=== PATIENT | female | born 1930 | race Caucasian/White ===

== ENCOUNTER → 2017-03-23 | Outpatient (CLI) | payer MEDICARE ==
[2016-08-25 10:48] VITALS: BP 153/72
[~2017-03-23] MED LIST: ACET325T9 PO; ASPI81TA44 PO; CLOP75TA57 PO; LATA2.5D3 EACHEYE; LISI10TA2 PO; OSEL30CA PO
--- NOTE | 2017-03-23 17:21 | RAD ---
Carotid ultrasound, 03/23/2017: History: Carotid stenosis Duplex evaluation of the carotid arteries in the neck was performed including grayscale, color-flow and spectral Doppler analysis. There is moderate calcific plaquing at the right carotid bifurcation. There is an associated velocity acceleration in the proximal right internal carotid artery up to 157 cm/s. The end-diastolic velocity at that level is 47 cm/s. The internal carotid artery to common carotid artery ratio is 1.8. These velocity measurements suggest narrowing in the 50-70% diameter range, probably closer the 50% level. There is mild atherosclerotic plaquing at the left carotid bifurcation. The peak systolic velocity in the left internal carotid artery is 88 cm/s with an end-diastolic velocity of 28 cm/s. The internal carotid to common carotid artery ratio is 1.1. These Doppler findings suggest narrowing in the 0-50% diameter range. Antegrade flow is present in both vertebral arteries in the neck. IMPRESSION: 1. Moderate atherosclerotic plaquing at the right carotid bifurcation with underlying luminal narrowing of the proximal internal carotid artery in the 50-70% diameter range. 2. Mild atherosclerotic plaquing at the left carotid bifurcation with underlying luminal narrowing in the 0-50% diameter range. Note: Stenosis calculations for CTA, MRA and conventional angiography are based upon determination of the distal ICA diameter in accordance with the NASCET methodology. Stenosis calculations for Doppler studies are derived from validated velocity criteria which are known to correlate with NASCET methodology of determining stenosis.
== END | disposition home or self-care (01) ==
LOC: US 13:59
PROVIDERS: ATTEND Family Medicine
DX: I63.033 Cerebral infarction due to thrombosis of bilateral carotid arteries (principal)
CPT/HCPCS: 93880

== ENCOUNTER → 2018-08-01 | Outpatient (CLI) | payer MEDICARE ==
[2016-08-25 10:48] VITALS: BP 153/72
[~2018-08-01] MED LIST changes: -ASPI81TA44 PO; +ASPI81TA59 PO
--- NOTE | 2018-08-01 18:25 | RAD ---
EXAM: AP, oblique and lateral views of the left foot DATE: 08/01/2018 2:58 PM INDICATION: left foot pain COMPARISON: No Prior FINDINGS/ IMPRESSION: Decreased bone mineral density. Second-fifth metatarsal neck fractures in mild apex medial angulation. Decreased bone mineral density. Moderate associated soft tissue swelling. Electronically signed by: Gigi Bass MD (08/01/2018 6:21 PM) [id number]
== END | disposition home or self-care (01) ==
LOC: DXRAD 14:45
PROVIDERS: ATTEND Orthopaedic Surgery Sports Medicine
DX: S92.322A Displaced fracture of second metatarsal bone, left foot, initial encounter for closed fracture (principal); S92.332A Displaced fracture of third metatarsal bone, left foot, initial encounter for closed fracture; S92.342A Displaced fracture of fourth metatarsal bone, left foot, initial encounter for closed fracture; S92.352A Displaced fracture of fifth metatarsal bone, left foot, initial encounter for closed fracture; M79.89 Other specified soft tissue disorders; X58.XXXA Exposure to other specified factors, initial encounter; Y93.89 Activity, other specified; Y92.89 Other specified places as the place of occurrence of the external cause; Y99.8 Other external cause status
CPT/HCPCS: 73630

== ENCOUNTER → 2019-07-25 | Outpatient (CLI) | payer MEDICARE ==
[2016-08-25 10:48] VITALS: BP 153/72
[2019-07-25 16:50] LABS: BASO # 0.1 x10^3/uL (0.0-0.2); BASO % 2 % (0-3); EOS # 0.2 x10^3/uL (0.0-0.7); EOS % 2 % (0-3); HEMATOCRIT 29.1 % (36.0-47.0); HEMOGLOBIN 9.1 g/dL (12.0-15.5); LYMPH # 2.3 x10^3/uL (1.0-4.8); LYMPH % 27 % (24-48); MEAN CORPUSCULAR HEMOGLOBIN 27 pg (25-35); MEAN CORPUSCULAR HGB CONC 31 g/dL (31-37); MEAN CORPUSCULAR VOLUME 87 fL (79-100); MONO # 0.6 x10^3/uL (0.0-1.1); MONO % 7 % (0-9); NEUT # 5.4 x10^3uL (1.8-7.7); NEUT % 63 % (31-73); PLATELET COUNT 396 x10^3/uL (140-400); RED BLOOD COUNT 3.35 x10^6/uL (3.50-5.40); RED CELL DISTRIBUTION WIDTH 15.4 % (11.5-14.5); WHITE BLOOD COUNT 8.6 x10^3/uL (4.0-11.0)
[2019-07-25 16:57] LABS: CALCIUM 9.2 mg/dL (8.5-10.1); CREATININE 0.6 mg/dL (0.6-1.0); GFR 94.3; POTASSIUM 3.8 mmol/L (3.5-5.1)
[2019-07-25 17:03] LABS: ALBUMIN 3.3 g/dL (3.4-5.0); ALBUMIN/GLOBULIN RATIO 0.9 (1.0-1.7); TOTAL BILIRUBIN 0.2 mg/dL (0.2-1.0)
[2019-07-26 20:05] LABS: FREE T4 0.97 ng/dL (0.76-1.46); THYROID STIM HORMONE (TSH) 0.984 uIU/mL (0.358-3.740)
== END | disposition home or self-care (01) ==
LOC: LAB 16:05
PROVIDERS: ATTEND Physician Assistant
DX: R00.2 Palpitations (principal)
CPT/HCPCS: 36415; 80053; 84439; 84443; 84484; 85025

== ENCOUNTER → 2019-08-02 | Outpatient (CLI) | payer MEDICARE ==
[2016-08-25 10:48] VITALS: BP 153/72
--- NOTE | 2019-08-02 10:56 | RAD ---
EXAM: Carotid Doppler sonogram. HISTORY: Carotid stenosis. TECHNIQUE: Rascon scale and color Doppler sonographic evaluation of the neck with spectral waveform analysis was performed and static images are submitted for review. FINDINGS: There is moderate to severe atherosclerotic plaque involving the right greater than left internal carotid arteries. The peak systolic velocity within the right common carotid artery is 78 cm/sec. The peak systolic velocity within the right internal carotid artery is 283 cm/sec and the end diastolic velocity within the right internal carotid artery is 84 cm/sec. The right ICA/CCA ratio is 3.7. The peak systolic velocity within the left common carotid artery is 99 cm/sec. The peak systolic velocity within the left internal carotid artery is 151 cm/sec and the end diastolic velocity within the left internal carotid artery is 50 cm/sec. The left ICA/CCA ratio is 2.0. There is normal antegrade flow within both vertebral arteries. IMPRESSION: 1. Elevated peak systolic velocity within the right ICA, suggesting greater than 70% stenosis. This is increased compared to the prior study dated 03/23/2017. 2. Elevated peak systolic velocity within the left ICA, suggesting 50-69% stenosis. This is increased compared to the prior study dated 03/23/2017. 3. Moderate to severe atherosclerotic plaque within the right greater than left internal carotid arteries. PQRS Compliance Statement - Stenosis calculations for CT, MR and conventional angiography are based upon measurement of the distal ICA diameter in accordance with the NASCET methodology. Stenosis calculations for carotid ultrasound studies are derived from validated velocity criteria which are known to correlate with the NASCET methodology. Electronically signed by: Xiomara Lamb MD (08/02/2019 10:53 AM) [place] [id number]
== END | disposition home or self-care (01) ==
LOC: US 09:51
PROVIDERS: ATTEND Family Medicine
DX: I65.23 Occlusion and stenosis of bilateral carotid arteries (principal)
CPT/HCPCS: 93880

== ENCOUNTER 2020-04-02 19:24 | Emergency (ER) | payer MEDICARE ==
[~2020-04-02] VITALS: Ht 160 cm; Wt 35.0 kg
[2020-04-02 19:37] VITALS: BP 138/70
[2020-04-02] MEDS ORDERED: IV NORMAL SALINE 1,000ML 1,000 ML IV ONE (19:45)
[2020-04-02] MEDS ORDERED: ONDANSETRON PF 4 MG/2 ML VIAL. IVP ONE (19:45)
--- NOTE | 2020-04-02 19:51 | PHYS DOC ---
Past History Past Medical History: Anxiety, Arthritis, CVA, Glaucoma, Hypertension, TIA, Other Past Surgical History: Appendectomy, Cholecystectomy, Hysterectomy, Oophorectomy, Tonsillectomy, Other Alcohol Use: None Drug Use: None General Adult EDM: Chief Complaint: HALLUCINATIONS AUDIBLE/VISUAL HPI: HPI: The history was obtained from the patient and daughter. Patient is a 89-year-old female with PMH CVA, hypertension, glaucoma, anxiety who presents with a chief complaint of headache and nausea. Patient states she developed a headache 2 days ago. States it is gradual in onset. She states it involves the front and right part of her head. She states headache is mild in nature. She has not tried any medicine to help with this. She denies any falls or head trauma. Denies any neck pain. Denies fevers. She also notes that she has had some nausea over the past 24 hours without vomiting. She states that she did have abdominal pain associated nausea initially but has no pain currently. Denies urinary symptoms. Does live at [facility]. States she was seen by physician therapy administrative assistant yesterday who evaluated her urine and did not think there is any acute infection. Patient denies any recent changes to her medications. She does note that she seems to be seeing figures in her room that are not actually there. She denies any drug or alcohol use. She denies any chest pain or shortness of breath. Denies any known exposure to coronavirus. She also notes some blurred vision mostly out of her left eye that is new. Denies any spots, flashing lights, floaters. Denies any temporal pain. States she does have some visual disturbance from her history of stroke but denies any extremity weakness. She does ambulate without assistance. No other complaints. Review of Systems: Review of Systems: Constitutional: Denies fever or chills Eyes: Denies change in visual acuity HENT: Denies nasal congestion or sore throat Respiratory: Denies cough or shortness of breath Cardiovascular: Denies chest pain or edema GI: Positive for vomiting : Denies dysuria Musculoskeletal: Denies back pain or joint pain Integument: Denies rash Neurologic: Positive for headache Endocrine: Denies polyuria or polydipsia Lymphatic: Denies swollen glands Psychiatric: Positive for visual hallucinations Heart Score: Risk Factors: Risk Factors: DM, Current or recent (<one month) smoker, HTN, HLP, family history of CAD, obesity. Risk Scores: Score 0 - 3: 2.5% MACE over next 6 weeks - Discharge Home Score 4 - 6: 20.3% MACE over next 6 weeks - Admit for Clinical Observation Score 7 - 10: 72.7% MACE over next 6 weeks - Early Invasive Strategies Current Medications: Current Meds: Current Medications Medications (Trade) Dose Ordered Sig/Shawna Start Time Stop Time Status Last Admin Dose Admin Ondansetron HCl (Zofran) 4 mg 1X ONCE 04/02/20 19:45 04/02/20 19:46 DC Sodium Chloride 1,000 ml @ 1,000 mls/hr 1X ONCE 04/02/20 19:45 04/02/20 20:44 Allergies: Allergies: Allergies Coded Allergies Type Severity Reaction Last Updated Verified Streptomycin Allergy Severe Hives 05/13/14 No morphine Allergy Intermediate Severe headache 05/13/14 No iodine Allergy Unknown 05/13/14 No Physical Exam: PE: Constitutional: Well developed, well nourished, no acute distress, non-toxic ap pearance. [] HENT: Normocephalic, atraumatic, bilateral external ears normal, oropharynx moist, no oral exudates, nose normal. [] Eyes: PERRLA, EOMI, conjunctiva normal, no discharge. [] Neck: Normal range of motion, no tenderness, supple, no stridor. [] Cardiovascular:Heart rate regular rhythm, no murmur [] Lungs & Thorax: Bilateral breath sounds clear to auscultation [] Abdomen: Soft, nontender, nonacute abdomen. No involuntary guarding or rigidity noted. No acute peritonitis. Skin: Warm, dry, no erythema, no rash. [] Back: No tenderness, no CVA tenderness. [] Extremities: No tenderness, no cyanosis, no clubbing, ROM intact, no edema. [] Neurologic: Alert with intact cognitive function. No aphasia, dysarthria, or neglect. GCS 15. Pupils 3 mm briskly reactive b/l. No APD present. Cranial nerv es 2-12 grossly intact; no facial asymmetry present, tongue midline, shoulder shrugging strength intact. Strength 5/5 and symmetric throughout. Light touch sensation intact throughout. Cerebellar testing appropriate without evidence of dysdiadochokinesia. DTR's 2+ in all 4 extremities. Negative pronator drift bilaterally. Gait normal Psychologic: Affect normal, judgement normal, mood normal. [] Current Patient Data: Labs: Laboratory Tests Test 04/02/20 20:00 White Blood Count 7.5 x10^3/uL Red Blood Count 2.31 x10^6/uL Hemoglobin 6.8 g/dL Hematocrit 20.8 % Mean Corpuscular Volume 90 fL Mean Corpuscular Hemoglobin 29 pg Mean Corpuscular Hemoglobin Concent 32 g/dL Red Cell Distribution Width 13.6 % Platelet Count 420 x10^3/uL Neutrophils (%) (Auto) 64 % Lymphocytes (%) (Auto) 23 % Monocytes (%) (Auto) 11 % Eosinophils (%) (Auto) 1 % Basophils (%) (Auto) 1 % Neutrophils # (Auto) 4.8 x10^3uL Lymphocytes # (Auto) 1.7 x10^3/uL Monocytes # (Auto) 0.8 x10^3/uL Eosinophils # (Auto) 0.1 x10^3/uL Basophils # (Auto) 0.1 x10^3/uL Sodium Level 139 mmol/L Potassium Level 2.7 mmol/L Chloride Level 105 mmol/L Carbon Dioxide Level 23 mmol/L Anion Gap 11 Blood Urea Nitrogen 7 mg/dL Creatinine 0.6 mg/dL Estimated GFR (Cockcroft-Gault) 94.3 BUN/Creatinine Ratio 12 Glucose Level 104 mg/dL Lactic Acid Level 0.6 mmol/L Calcium Level 8.6 mg/dL Magnesium Level 1.9 mg/dL Total Bilirubin 0.1 mg/dL Aspartate Amino Transf (AST/SGOT) 13 U/L Alanine Aminotransferase (ALT/SGPT) 14 U/L Alkaline Phosphatase 86 U/L Creatine Kinase 42 U/L Troponin I Quantitative 0.162 ng/mL Total Protein 6.1 g/dL Albumin 2.5 g/dL Albumin/Globulin Ratio 0.7 Salicylates Level 2.8 mg/dL Salicylate Last Dose Date None Salicylate Last Dose Time None Acetaminophen Level 2.8 mcg/mL Acetaminophen Last Dose Date None Acetaminophen Last Dose Time None Current Medications Medications (Trade) Dose Ordered Sig/Shawna Route PRN Reason Start Time Stop Time Status Last Admin Dose Admin Sodium Chloride 1,000 ml @ 1,000 mls/hr 1X ONCE IV 04/02/20 19:45 04/02/20 20:44 DC 04/02/20 21:08 Ondansetron HCl (Zofran) 4 mg 1X ONCE IVP 04/02/20 19:45 04/02/20 19:46 DC Magnesium Sulfate 50 ml @ 25 mls/hr 1X ONCE IV 04/02/20 21:15 04/02/20 23:14 Potassium Chloride 100 ml @ 25 mls/hr Q2H IV 04/02/20 21:15 04/03/20 05:14 EKG: EKG: EKG consistent with normal sinus rhythm. Left axis noted. Intervals normal. ST flattening noted in lead aVF. ST depression noted in lateral precordial leads. Intraocular rate of 98 bpm. Morphology similar to EKG from August 24, 2016. [] Radiology/Procedures: Radiology/Procedures: [address] [address] IMAGING REPORT Signed PATIENT: CRISTIN NEWTON ACCOUNT: [id number] : 1930 LOCATION: ER AGE: 89 SEX: F EXAM STATUS: REG ER ORD. PHYSICIAN: GONZALEZ RYAN DO REASON: abdominal pain diffuse, nausea PROCEDURE: CT ABDOMEN PELVIS WO CONTRAST EXAM: CT ABDOMEN/PELVIS WITHOUT CONTRAST. HISTORY: Abdominal pain, nausea. TECHNIQUE: Computed tomography of the abdomen and pelvis was performed without intravenous contrast. One or more of the following individualized dose reduction techniques were utilized for this examination: 1. Automated exposure control. 2. Adjustment of the mA and/or kV according to patient size. 3. Use of iterative reconstruction technique. COMPARISON: None. FINDINGS: Lung windows through the visualized portions of the bases reveal interstitial opacities and small nodules in both bases measuring up to 6 mm in the right middle lobe. Bone windows reveal no suspicious lesions. There is a moderate inferior endplate compression fracture at L1. There is a mild thoracolumbar dextroscoliosis. There are changes of internal fixation of a chronic right femoral intertrochanteric fracture. A left hip hemiarthroplasty is noted. A benign cyst at the right renal lower pole measures 5.6 x 4.4 cm. There is a small cyst at the left upper pole. The gallbladder is surgically absent. The common duct measures 10 mm. No cause for distal obstruction is seen. The liver, spleen, pancreas, adrenal glands and spleen are unremarkable without contrast. There are no pathologically enlarged lymph nodes. There is an anastomotic suture line along the rectosigmoid junction. There is dense contrast within the colon from a prior procedure. There are no surrounding enlarged lymph nodes. The appendix is not inflamed. There is a focal region of wall thickening along the cecum concerning for a mass. IMPRESSION: 1. A region of wall thickening along the right colon is concerning for adenocarcinoma. Endoscopy is recommended for further evaluation if the diagnosis is not already known. 2. No evidence of metastatic disease by noncontrast CT. Electronically signed by: Clinton Candelario MD (04/02/2020 9:51 PM) [facility] DICTATED AND SIGNED BY: CINDY CANDELARIO MD DATE: 04/02/202150 CC: HELLEN DEAN MD; GONZALEZ RYAN DO ~ [place] [address] IMAGING REPORT Signed PATIENT: CRISTIN NEWTON ACCOUNT: [id number] : 1930 LOCATION: ER AGE: 89 SEX: F EXAM STATUS: REG ER ORD. PHYSICIAN: GONZALEZ RYAN DO REASON: AMS, headache, nausea, weakness PROCEDURE: CHEST AP ONLY EXAM: AP View of the chest DATE: 04/02/2020 7:42 PM INDICATION: Reason: AMS, headache, nausea, weakness / Spl. Instructions: / History: COMPARISON: No Prior FINDINGS: The heart is not enlarged. Mediastinal and hilar contours are normal. Patchy nodular opacity in the suprahilar right upper lung and infrahilar right lower lung. Emphysematous changes are seen. No pleural effusion or pneumothorax. IMPRESSION: 1. Patchy nodular opacities are seen in the right lung. This may represent developing infectious/inflammatory process or underlying lung nodules. Imaging follow-up to resolution is recommended. 2. Background of emphysematous change. Electronically signed by: Gigi Bermeo MD (04/02/2020 9:20 PM) [facility] DI[facility]ATED AND SIGNED BY: GIGI BERMEO MD DATE: 04/02/202119 CC: HELLEN DEAN MD; GONZALEZ RYAN DO ~ [place] [id number] IMAGING REPORT Signed PATIENT: CRISTIN NEWTON ACCOUNT: [id number] : 1930 LOCATION: ER AGE: 89 SEX: F EXAM STATUS: REG ER ORD. PHYSICIAN: GONZALEZ RYAN DO REASON: headahce x 2 days PROCEDURE: CT HEAD WO CONTRAST EXAM: CT Head without IV contrast CLINICAL HISTORY: Headache x 2 days COMPARISON: 08/24/2016 TECHNIQUE: Routine CT of the head without contrast. PQRS compliance statement - One or more of the following individualized dose reduction techniques were utilized for this study: 1. Automated exposure control 2. Adjustment of the mA and/or kV according to patient size 3. Use of iterative reconstruction technique FINDINGS: There is no evidence of hemorrhage, mass or extra-axial fluid collection. Subcortical, periventricular as well as deep white matter hypoattenuation likely changes of chronic small vessel disease. There is no mass effect or shift of the intracranial structures. The ventricles and cerebral sulci are prominent for the patients stated age consistent with generalized cerebral volume loss. The cerebellum and brainstem are unremarkable. The calvarium demonstrates no evidence of fracture or focal lesion. There is normal aeration of the visualized paranasal sinuses and mastoid air cells. The visualized portions of the orbits are normal. IMPRESSION: No evidence for acute intracranial process. White matter changes, likely chronic small vessel disease. There is prominence of the ventricles and sulci bilaterally consistent with generalized atrophy. Electronically signed by: Gigi Bermeo MD (04/02/2020 9:18 PM) [facility] DICTATED AND SIGNED BY: GIGI BERMEO MD DATE: 04/02/202117 CC: HELLEN DEAN MD; GONZALEZ RYAN DO ~ [] Course & Med Decision Making: Course & Med Decision Making Pertinent Labs and Imaging studies reviewed. (See chart for details) [] Patient is a very pleasant 89-year-old female who presents with a chief complaint of generalized weakness. Initial vital signs grossly unremarkable. Physical exam unremarkable as well. No focal neurologic deficits appreciated. CT imaging of the head nonacute. Initial EKG without acute ischemic changes. Compared to previous it is unchanged. Patient does have multiple lab abnormalities. She does have potassium of 2.7. Elevated troponin. Hemoglobin is 6.8. Potassium and magnesium replacement was initiated in the emergency department. She will be given 1 unit packed red blood cells. Although the patient does have an elevated troponin she has no EKG changes and denies any chest pain. I do feel it is most appropriate to defer heparinization given the patient's age and hemoglobin of 6.8 at this time given she is asymptomatic. Patient's chest x-ray did show a nonspecific right-sided abnormality. Patient will be given Rocephin and azithromycin to treat for potential community- acquired pneumonia. COVID swabs were obtained and pending although she denies any respiratory complaints. I did discuss the case with who has agreed to hospitalize the patient at [facility]. He felt the patient would best be cared for at a facility that has more comprehensive cardiology coverage. Overall I agree with this. She has remained hemodynamically stable. She will be transferred to [facility] for hospitalization. Gela Disclaimer: Dragjorge luis Disclaimer: This electronic medical record was generated, in whole or in part, using a voice recognition dictation system. Departure Departure: Impression: Primary Impression: Anemia Qualified Codes: D64.9 - Anemia, unspecified Additional Impressions: Elevated troponin Abnormal chest xray Blurred vision, right eye Abnormal abdominal CT scan Disposition: T-TRM HOSP Condition: STABLE Referrals: HELLEN DEAN MD (PCP) Justification of Admission: Justification of Admission: Justification of Admission Dx: Yes Comments: hypokalemia, elevated troponin, abnormal chest xray, anemia GONZALEZ RYAN DO Apr 02, 2020 19:51
[2020-04-02 20:30] LABS: BASO # 0.1 x10^3/uL (0.0-0.2); BASO % 1 % (0-3); EOS # 0.1 x10^3/uL (0.0-0.7); EOS % 1 % (0-3); HEMATOCRIT 20.8 % (36.0-47.0); LYMPH # 1.7 x10^3/uL (1.0-4.8); LYMPH % 23 % (24-48); MEAN CORPUSCULAR HEMOGLOBIN 29 pg (25-35); MEAN CORPUSCULAR HGB CONC 32 g/dL (31-37); MEAN CORPUSCULAR VOLUME 90 fL (79-100); MONO # 0.8 x10^3/uL (0.0-1.1); MONO % 11 % (0-9); NEUT # 4.8 x10^3uL (1.8-7.7); NEUT % 64 % (31-73); PLATELET COUNT 420 x10^3/uL (140-400); RED BLOOD COUNT 2.31 x10^6/uL (3.50-5.40); RED CELL DISTRIBUTION WIDTH 13.6 % (11.5-14.5); WHITE BLOOD COUNT 7.5 x10^3/uL (4.0-11.0)
[2020-04-02 20:34] LABS: HEMOGLOBIN 6.8 g/dL (12.0-15.5)
[2020-04-02 20:52] LABS: ALBUMIN 2.5 g/dL (3.4-5.0); ALBUMIN/GLOBULIN RATIO 0.7 (1.0-1.7); CALCIUM 8.6 mg/dL (8.5-10.1); CREATININE 0.6 mg/dL (0.6-1.0); GFR 94.3; TOTAL BILIRUBIN 0.1 mg/dL (0.2-1.0); TOTAL PROTEIN 6.1 g/dL (6.4-8.2)
[2020-04-02 21:01] LABS: ACETAMIN 2.8 mcg/mL (10-30); SALIC 2.8 mg/dL (2.8-20.0)
[2020-04-02 21:05] LABS: POTASSIUM 2.7 mmol/L (3.5-5.1)
[2020-04-02] MEDS ORDERED: MAGNESIUM SULFATE 2GM 50 ML IV ONE (21:15)
[2020-04-02] MEDS ORDERED: POTASSIUM CHLORIDE 20MEQ 100 ML IV SCH (21:15)
--- NOTE | 2020-04-02 21:21 | RAD ---
EXAM: CT Head without IV contrast CLINICAL HISTORY: Headache x 2 days COMPARISON: 08/24/2016 TECHNIQUE: Routine CT of the head without contrast. PQRS compliance statement - One or more of the following individualized dose reduction techniques were utilized for this study: 1. Automated exposure control 2. Adjustment of the mA and/or kV according to patient size 3. Use of iterative reconstruction technique FINDINGS: There is no evidence of hemorrhage, mass or extra-axial fluid collection. Subcortical, periventricular as well as deep white matter hypoattenuation likely changes of chronic small vessel disease. There is no mass effect or shift of the intracranial structures. The ventricles and cerebral sulci are prominent for the patients stated age consistent with generalized cerebral volume loss. The cerebellum and brainstem are unremarkable. The calvarium demonstrates no evidence of fracture or focal lesion. There is normal aeration of the visualized paranasal sinuses and mastoid air cells. The visualized portions of the orbits are normal. IMPRESSION: No evidence for acute intracranial process. White matter changes, likely chronic small vessel disease. There is prominence of the ventricles and sulci bilaterally consistent with generalized atrophy. Electronically signed by: Gigi Bass MD (04/02/2020 9:18 PM) [facility]
--- NOTE | 2020-04-02 21:22 | RAD ---
EXAM: AP View of the chest DATE: 04/02/2020 7:42 PM INDICATION: Reason: AMS, headache, nausea, weakness / Spl. Instructions: / History: COMPARISON: No Prior FINDINGS: The heart is not enlarged. Mediastinal and hilar contours are normal. Patchy nodular opacity in the suprahilar right upper lung and infrahilar right lower lung. Emphysematous changes are seen. No pleural effusion or pneumothorax. IMPRESSION: 1. Patchy nodular opacities are seen in the right lung. This may represent developing infectious/inflammatory process or underlying lung nodules. Imaging follow-up to resolution is recommended. 2. Background of emphysematous change. Electronically signed by: Gigi Bass MD (04/02/2020 9:20 PM) [facility]
--- NOTE | 2020-04-02 21:54 | RAD ---
EXAM: CT ABDOMEN/PELVIS WITHOUT CONTRAST. HISTORY: Abdominal pain, nausea. TECHNIQUE: Computed tomography of the abdomen and pelvis was performed without intravenous contrast. One or more of the following individualized dose reduction techniques were utilized for this examination: 1. Automated exposure control. 2. Adjustment of the mA and/or kV according to patient size. 3. Use of iterative reconstruction technique. COMPARISON: None. FINDINGS: Lung windows through the visualized portions of the bases reveal interstitial opacities and small nodules in both bases measuring up to 6 mm in the right middle lobe. Bone windows reveal no suspicious lesions. There is a moderate inferior endplate compression fracture at L1. There is a mild thoracolumbar dextroscoliosis. There are changes of internal fixation of a chronic right femoral intertrochanteric fracture. A left hip hemiarthroplasty is noted. A benign cyst at the right renal lower pole measures 5.6 x 4.4 cm. There is a small cyst at the left upper pole. The gallbladder is surgically absent. The common duct measures 10 mm. No cause for distal obstruction is seen. The liver, spleen, pancreas, adrenal glands and spleen are unremarkable without contrast. There are no pathologically enlarged lymph nodes. There is an anastomotic suture line along the rectosigmoid junction. There is dense contrast within the colon from a prior procedure. There are no surrounding enlarged lymph nodes. The appendix is not inflamed. There is a focal region of wall thickening along the cecum concerning for a mass. IMPRESSION: 1. A region of wall thickening along the right colon is concerning for adenocarcinoma. Endoscopy is recommended for further evaluation if the diagnosis is not already known. 2. No evidence of metastatic disease by noncontrast CT. Electronically signed by: Clinton Candelario MD (04/02/2020 9:51 PM) [facility]
[2020-04-02] MEDS ORDERED: AZITHROMYCIN 500 MG in IV NORMAL SALINE 250ML 250 ML IV ONE (22:00)
--- NOTE | 2020-04-04 07:26 | EKG ---
[address] [address] Test Date: 2020-04-02 Test Time: 19:51:19 Pat Name: CRISTIN NEWTON Department: Room: Gender: F Enrollment Services Dean: : 1930 Requested By: GONZALEZ RYAN Order Number: [id number] Reading MD: Measurements Intervals [place] Rate: 98 P: 28 WI: 132 QRS: -5 QRSD: 70 T: 38 QT: 286 QTc: 367 Interpretive Statements SINUS RHYTHM LEFTWARD AXIS ST & T ABNORMALITY, CONSIDER ANTEROLATERAL ISCHEMIA OR LEFT VENTRICULAR STRAIN INFEROLATERAL ISCHEMIA OR LEFT VENTRICULAR STRAIN ABNORMAL ECG RI6.02 No previous ECG available for comparison
== END 2020-04-02 22:42 | disposition short-term general hospital (02) ==
LOC: ER 19:24
DX: D64.9 Anemia, unspecified (principal); R79.89 Other specified abnormal findings of blood chemistry; R93.1 Abnormal findings on diagnostic imaging of heart and coronary circulation; H53.8 Other visual disturbances; R93.5 Abnormal findings on diagnostic imaging of other abdominal regions, including retroperitoneum; M19.90 Unspecified osteoarthritis, unspecified site; I10 Essential (primary) hypertension; Z86.73 Personal history of transient ischemic attack (TIA), and cerebral infarction without residual deficits; Z90.49 Acquired absence of other specified parts of digestive tract; Z90.89 Acquired absence of other organs; Z90.710 Acquired absence of both cervix and uterus; Z90.722 Acquired absence of ovaries, bilateral; Z88.1 Allergy status to other antibiotic agents; Z88.5 Allergy status to narcotic agent; Z88.8 Allergy status to other drugs, medicaments and biological substances
CPT/HCPCS: 36415; 70450; 71045; 74176; 80053; 80329; 82550; 83605; 83735; 84484; 85025; 86850; 86900; 86901; 86920; 93005; 96360; 99285; J7030; G0480

== ENCOUNTER 2020-07-30 18:07 | Emergency (ER) | payer MEDICARE ==
[~2020-07-30] VITALS: Ht 160 cm; Wt 35.0 kg
[2020-07-30] MEDS ORDERED: CYCLOBENZAPRINE 10 MG TABLET. PO ONE (19:00)
--- NOTE | 2020-07-30 19:05 | PHYS DOC ---
Past History Past Medical History: Anxiety, Arthritis, Cancer, CVA, Glaucoma, Hypertension, TIA, Other (XIN WEIR APRN) Past Surgical History: Appendectomy, Cancer Surgery, Cholecystectomy, Hysterectomy, Oophorectomy, Tonsillectomy, Other Additional Past Surgical Histo: colon cancer surgery May 08 2020 (XIN WEIR APRN) Additional Smoking Information: 1/2 PPD 60years. Alcohol Use: None Drug Use: None (XIN WEIR APRN) General Adult EDM: Chief Complaint: BACK PAIN OR INJURY HPI: HPI: Patient is a 89 year old female who presents with back pain and lower abdominal pain after finishing PT yesterday."The pain started after I did a twisting motion at PT". "It also hurts in my lower abdomen under my belly button and lower back". "It feels like a I pulled a muscle". Daughter states patient took two aleve this morning for pain. Patient denies any known injury. Denies n/v/d. (XIN WEIR APRN) Review of Systems: Review of Systems: Constitutional: Denies fever or chills Eyes: Denies change in visual acuity HENT: Denies nasal congestion or sore throat Respiratory: Denies cough or shortness of breath Cardiovascular: Denies chest pain or edema GI: Reports lower abdominal pain, Denies nausea, vomiting, bloody stools or diarrhea : Denies dysuria, frequency Musculoskeletal: Reports lower back pain Integument: Denies rash Neurologic: Denies headache, focal weakness or sensory changes Endocrine: Denies polyuria or polydipsia Lymphatic: Denies swollen glands Psychiatric: Denies depression or anxiety (XIN WEIR APRN) Current Medications: Current Meds: Current Medications Medications (Trade) Dose Ordered Sig/Shawna Start Time Stop Time Status Last Admin Dose Admin Cyclobenzaprine HCl (Flexeril) 10 mg 1X ONCE 07/30/20 19:00 07/30/20 19:01 (XIN WEIR APRN) Allergies: Allergies: Allergies Coded Allergies Type Severity Reaction Last Updated Verified streptomycin Allergy Severe Hives 07/30/20 No morphine Allergy Intermediate Severe headache 07/30/20 No iodine Allergy Unknown 07/30/20 No (XIN WEIR APRN) Physical Exam: PE: Constitutional: Well developed, well nourished, no acute distress, non-toxic appearance. [] HENT: Normocephalic, atraumatic, bilateral external ears normal, oropharynx moist, no oral exudates, nose normal. [] Eyes: PERRLA, EOMI, conjunctiva normal, no discharge. [] Neck: Normal range of motion, no tenderness, supple, no stridor. [] Cardiovascular:Heart rate regular rhythm, no murmur [] Lungs & Thorax: Bilateral breath sounds clear to auscultation [] Abdomen: Bowel sounds normal, soft, tenderness with palpitation, no masses Skin: Warm, dry, no erythema, no rash. [] Back: tenderness to lower back, no CVA tenderness. [] Extremities: No tenderness, no cyanosis, no clubbing, ROM intact, no edema. [] Neurologic: Alert and oriented X 3, normal motor function, normal sensory function, no focal deficits noted. [] Psychologic: Affect normal, judgement normal, mood normal. [] (XIN WEIR APRN) Current Patient Data: Vital Signs: Vital Signs Date Time Temp Pulse Resp B/P (MAP) Pulse Ox O2 Delivery O2 Flow Rate FiO2 07/30/20 18:20 97.7 100 18 210/101 (137) 95 (XIN WEIR APRN) EKG: EKG: [] (XIN WEIR APRN) Radiology/Procedures: Radiology/Procedures: []CT scan of the abdomen and pelvis without contrast 07/30/2020 CLINICAL HISTORY: Abdominal pain. TECHNIQUE: Unenhanced, contiguous, 3 mm axial sections were obtained through the abdomen and pelvis. One or more of the following individualized dose reduction techniques were utilized for this study: 1. Automated exposure control. 2. Adjustment of the mA and/or kV according to patient size. 3. Use of iterative reconstruction technique. FINDINGS: Comparison study is dated 04/02/2020. Images through the lung bases demonstrate minimal dependent subsegmental atelectasis bilaterally. The liver, spleen, pancreas, adrenal glands and left kidney are within normal limits. A 5.5 cm rounded low-attenuation lesion is seen projecting medially from the lower pole the right kidney. This likely represents a cyst. It is unchanged. No further imaging evaluation is recommended. Atherosclerotic calcification abdominal aorta and its branches is noted. The abdominal aorta tapers normally. The gallbladder is not visualized consistent with a cholecystectomy. No free fluid or free air is seen within the abdomen. There is no evidence of bowel obstruction. The patient is post resection of the ascending colon and anastomosis between the ileum and transverse colon is seen within the right abdomen. Images through the pelvis demonstrated the urinary bladder distended with urine. Patient is post left SHERMAN. A hip screw and intramedullary salo are seen within the proximal right femur. Moderate amount stool seen within the rectum and sigmoid colon. An anastomosis is seen involving the inferior sigmoid colon. No free fluid is seen. Mild S-shaped curvature of the thoracolumbar spine is seen. Degenerative changes are seen involving the lower thoracic and throughout the lumbar spine. Old appearing compression fracture of the inferior aspect of the L1 vertebral body is seen. A relatively acute appearing compression fracture is seen involving the T12 vertebral body. This vertebral body has lost approximately 30 percent of its normal height. No retropulsion of bone fragments into the central spinal canal is seen. IMPRESSION: 1. . A relatively acute appearing compression fracture seen involving the T12 vertebral body. No retropulsion of bone fragments into the central spinal canal is seen. 2. No additional acute abnormality is seen. Electronically signed by: Jesus Roth MD (07/30/2020 7:38 PM) [id number] (XIN WEIR APRN) Heart Score: Risk Factors: Risk Factors: DM, Current or recent (<one month) smoker, HTN, HLP, family history of CAD, obesity. Risk Scores: Score 0 - 3: 2.5% MACE over next 6 weeks - Discharge Home Score 4 - 6: 20.3% MACE over next 6 weeks - Admit for Clinical Observation Score 7 - 10: 72.7% MACE over next 6 weeks - Early Invasive Strategies (XIN WEIR APRN) Course & Med Decision Making: Course & Med Decision Making Pertinent Labs and Imaging studies reviewed. (See chart for details) []Patient is a 89 year old female who presents with back pain and lower abdominal pain after finishing PT yesterday."The pain started after I did a twisting motion at PT". "It also hurts in my lower abdomen under my belly button and lower back". "It feels like a I pulled a muscle". Daughter states patient took two aleve this morning for pain. Patient denies any known injury. Denies n/v/d. Ordering CT abdomen and pelvis . CT scan of the abdomen and pelvis show A relatively acute appearing compression fracture seen involving the T12 vertebral body. No retropulsion of bone fragments into the central spinal canal is seen. No additional acute abnormality is seen. Informed patient of CT results. Patient given referral for Intervention Radiology for follow up to see if candidate for arthoroplasty. Patient denies an numbness or tingling in legs. Denies urinary retention or loss of bowel. Daughter is requesting patient have Hydrocodone, Flexeril at home. Daughter states that someone will be with her mom and be giving her the medications she needs. I discussed risk for fall and drowsiness with medication and they both state they understand the risk. Patient also has a UTI. Will prescribe antibiotics for treatment of UTI. All other labs were unremarkable. Patient is hemodynamically stable and wishes to be discharged to home with home health. 1.Compression fracture 2. UTI 2. Muscle strain (XIN WEIR APRN) Dragon Disclaimer: Dragon Disclaimer: This electronic medical record was generated, in whole or in part, using a voice recognition dictation system. (XIN WEIR APRN) Departure Departure: Impression: Primary Impression: Back pain Qualified Codes: M54.5 - Low back pain Additional Impression: UTI (urinary tract infection) Qualified Codes: N30.00 - Acute cystitis without hematuria Disposition: 01 DC HOME SELF CARE/HOMELESS Condition: IMPROVED Referrals: HELLEN DEAN MD (PCP) Patient Instructions: Back Pain, Adult, [id number] Additional Instructions: Please follow up with your PCP to get an order for an MRI. Please take pain medication and muscle relaxer as needed for pain. You can also use Tylenol as needed for pain. I have also written you a prescription for urinary tract infection. Please take antibiotics as directed. If you have worsening symptoms or concerns please return the emergency room for evaluation. Its been a pleasure caring for you today and I wish you well. EMERGENCY DEPARTMENT GENERAL DISCHARGE INSTRUCTIONS Thank you for coming to [facility] (ED) today and trusting us with you care. We trust that you had a positivie experience in our Emergency Department. If you wish to speak to the department management, you may call the director at [phone]. YOUR FOLLOW UP INSTRUCTIONS ARE FOLLOWS: 1. Do you have a private Doctor? If you do not have a private doctor, please ask for a resource list of physicians or clinics that may be able to assist you with follow up care. 2. The Emergency Physician has interpreted your x-rays. The X-Ray specialist will also review them. If there is a change in the findings, you will be notified in 48 hours when at all possible. 3. A lab test or culture has been done, your results will be reviewed and you will be notified if you need a change in treatment. ADDITIONAL INSTRUCTIONS AND INFORMATION: 1. Your care today has been supervised by a physician who is specially trained in emergency care. Many problems require more than one evaluation for a complete diagnosis and treatment. We recommend that you schedule your follow up appointment as recommended to ensure complete treatment of you illness or injury. If you are unable to obtain follow up care and continue to have a problem, or if your condition worsens, we recommend that you return to the ED. 2. We are not able to safely determine your condition over the phone nor are we able to give sound medical advice over the phone. For these safety reasons, if you call for medical advice we will ask you to come to the ED for further evaluation. 3. If you have any questions regarding these discharge instructions please call the ED at [phone]. SAFETY INFORMATION: In the interest of safety, wellness, and injury prevention; we encourage you to wear your sealbelt, if you smoke; quite smoking, and we encourage family to use a protective helmet for bicycling and other sporting events that present an increased risk for head injury. IF YOUR SYMPTOMS WORSEN OR NEW SYMPTOMS DEVELOP, OR YOU HAVE CONCERNS ABOUT YOUR CONDITION; OR IF YOUR CONDITION WORSENS WHILE YOU ARE WAITING FOR YOUR FOLLOW UP APPOINTMENT; EITHER CONTACT YOUR PRIMARY CARE DOCTOR, THE PHYSICIAN WHOSE NAME AND NUMBER YOU WERE GIVEN, OR RETURN TO THE ED IMMEDIATELY. Scripts Nitrofurantoin Macrocrystal (NITROFURANTOIN) 100 Mg Capsule 100 MG PO BID for uti for 7 Days, #14 CAP Prov: XIN WEIR APRN 07/30/20 Cyclobenzaprine Hcl (CYCLOBENZAPRINE HCL) 10 Mg Tablet 1 TAB PO TID PRN for PAIN for 10 Days, #30 TAB 0 Refills Prov: XIN WEIR APRN 07/30/20 Hydrocodone/Acetaminophen (Hydrocodone-Acetamin 5-325 mg) 1 Each Tablet 0.5-1 EACH PO Q6HRS for pain for 5 Days, #20 TAB Prov: XIN WEIR APRN 07/30/20 Attending Signature Attending Signature I have participated in the care of this patient and I have reviewed and agree with all pertinent clinical information above including history, exam, and recommendations. (GENIA ROCKWELL MD) XIN WEIR APRN Jul 30, 2020 19:05 GENIA ROCKWELL MD Aug 03, 2020 02:46
--- NOTE | 2020-07-30 19:41 | RAD ---
CT scan of the abdomen and pelvis without contrast 07/30/2020 CLINICAL HISTORY: Abdominal pain. TECHNIQUE: Unenhanced, contiguous, 3 mm axial sections were obtained through the abdomen and pelvis. One or more of the following individualized dose reduction techniques were utilized for this study: 1. Automated exposure control. 2. Adjustment of the mA and/or kV according to patient size. 3. Use of iterative reconstruction technique. FINDINGS: Comparison study is dated 04/02/2020. Images through the lung bases demonstrate minimal dependent subsegmental atelectasis bilaterally. The liver, spleen, pancreas, adrenal glands and left kidney are within normal limits. A 5.5 cm rounde d low-attenuation lesion is seen projecting medially from the lower pole the right kidney. This likel y represents a cyst. It is unchanged. No further imaging evaluation is recommended. Atherosclerotic calcification abdominal aorta and its branches is noted. The abdominal aorta tapers n ormally. The gallbladder is not visualized consistent with a cholecystectomy. No free fluid or free a ir is seen within the abdomen. There is no evidence of bowel obstruction. The patient is post resecti on of the ascending colon and anastomosis between the ileum and transverse colon is seen within the r ight abdomen. Images through the pelvis demonstrated the urinary bladder distended with urine. Patient is post left SHERMAN. A hip screw and intramedullary salo are seen within the proximal right femur. Moderate amount st ool seen within the rectum and sigmoid colon. An anastomosis is seen involving the inferior sigmoid c olon. No free fluid is seen. Mild S-shaped curvature of the thoracolumbar spine is seen. Degenerative changes are seen involving the lower thoracic and throughout the lumbar spine. Old appearing compression fracture of the inferior aspect of the L1 vertebral body is seen. A relativ chiki acute appearing compression fracture is seen involving the T12 vertebral body. This vertebral bod y has lost approximately 30 percent of its normal height. No retropulsion of bone fragments into the central spinal canal is seen. IMPRESSION: 1. . A relatively acute appearing compression fracture seen involving the T12 vertebral body. No retr opulsion of bone fragments into the central spinal canal is seen. 2. No additional acute abnormality is seen. Electronically signed by: Jesus Roth MD (07/30/2020 7:38 PM) [id number]
[2020-07-30 19:57] LABS: BILIRUBIN,URINE NEG (NEG); CLARITY,URINE CLEAR; COLOR,URINE YELLOW; GLUCOSE,URINE NEG (NEG)
[2020-07-30 19:58] LABS: BACTERIA,URINE 0 /HPF (0-FEW); NITRITE,URINE NEG (NEG); SQUAMOUS EPITHELIAL CELL,UR MOD /LPF; UROBILINOGEN,URINE 0.2 mg/dL (0.2 mg/dL)
[2020-07-30 20:11] LABS: BASO # 0.1 x10^3/uL (0.0-0.2); BASO % 1 % (0-3); EOS # 0.2 x10^3/uL (0.0-0.7); EOS % 2 % (0-3); HEMATOCRIT 42.2 % (36.0-47.0); HEMOGLOBIN 13.7 g/dL (12.0-15.5); LYMPH # 1.5 x10^3/uL (1.0-4.8); LYMPH % 15 % (24-48); MEAN CORPUSCULAR HEMOGLOBIN 28 pg (25-35); MEAN CORPUSCULAR HGB CONC 32 g/dL (31-37); MEAN CORPUSCULAR VOLUME 86 fL (79-100); MONO # 0.6 x10^3/uL (0.0-1.1); MONO % 6 % (0-9); NEUT # 7.5 x10^3uL (1.8-7.7); NEUT % 76 % (31-73); PLATELET COUNT 265 x10^3/uL (140-400); RED CELL DISTRIBUTION WIDTH 18.3 % (11.5-14.5)
[2020-07-30 20:13] LABS: CALCIUM 9.5 mg/dL (8.5-10.1); CREATININE 0.6 mg/dL (0.6-1.0); GFR 94.1; POTASSIUM 3.4 mmol/L (3.5-5.1)
[2020-07-30] MEDS ORDERED: CYCL-331 PO (21:17)
[2020-07-30] MEDS ORDERED: HYDR-2759 PO (21:17)
[2020-07-30] MEDS ORDERED: NITR100C PO (21:25)
[2020-07-30] MEDS ORDERED: NITROFURANTOIN MONOHYD/M-CRYST 100 MG CAPSULE. PO ONE (21:30)
[2020-07-30] MEDS ORDERED: HYDROcodone/APAP 5/325MG 1 TAB TABLET PO ONE (21:30)
[2020-07-30 21:45] VITALS: BP 128/70
== END 2020-07-30 21:45 | disposition home or self-care (01) ==
LOC: ER 18:07
DX: S22.080A Wedge compression fracture of T11-T12 vertebra, initial encounter for closed fracture (principal); N39.0 Urinary tract infection, site not specified; F41.9 Anxiety disorder, unspecified; M19.90 Unspecified osteoarthritis, unspecified site; I10 Essential (primary) hypertension; F17.200 Nicotine dependence, unspecified, uncomplicated; Z86.73 Personal history of transient ischemic attack (TIA), and cerebral infarction without residual deficits; Z90.49 Acquired absence of other specified parts of digestive tract; Z90.89 Acquired absence of other organs; Z90.710 Acquired absence of both cervix and uterus; Z90.722 Acquired absence of ovaries, bilateral; Z88.1 Allergy status to other antibiotic agents; Z88.5 Allergy status to narcotic agent; Z88.8 Allergy status to other drugs, medicaments and biological substances; X50.9XXA Other and unspecified overexertion or strenuous movements or postures, initial encounter; Y93.89 Activity, other specified; Y92.89 Other specified places as the place of occurrence of the external cause; Y99.8 Other external cause status
CPT/HCPCS: 36415; 74176; 80048; 81001; 85025; 87086; 99284-25

== ENCOUNTER 2020-09-05 21:02 | Emergency (ER) | payer MEDICARE ==
[~2020-09-05] VITALS: Ht 160 cm; Wt 77.0 kg
[~2020-09-05 21:02] MED LIST changes: +CYCL-331 PO; +HYDR-2759 PO; +LISI10TA16 PO; -LISI10TA2 PO; +NITR100C PO
--- NOTE | 2020-09-05 21:12 | PHYS DOC ---
Past History Past Medical History: Anxiety, Arthritis, Cancer, CVA, Glaucoma, Hypertension, TIA, Other Past Surgical History: Appendectomy, Cancer Surgery, Cholecystectomy, Hysterectomy, Oophorectomy, Tonsillectomy, Other Additional Past Surgical Histo: colon cancer surgery May 08 2020 Alcohol Use: None Drug Use: None General Adult HPI: HPI: ". I had another slip and fall.. hit the back of my head.. and this Lt. elbow.. I am fine.. but they made me come...".. " I had just gone to the bath room.. and was turning around with my walker.. and osman slipped and fell.. hit this Lt. elbow and back my head.. I am fine.. but they made me come in... " Patient is a 89 year old female who presents with hx of fall. Patient is a resident of [facility] rehab. Has been a resident there since 08/08/2020. Patient has a hematoma to the posterior scalp. Some upper neck tenderness. Also has contusion to left elbow. Patient is denies any loss of consciousness. Patient left elbow has range of motion with some mild pain. Distal neurovascular is intact. Cap refill left hand is equal to right hand. Patient denies other injury at this time. 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 Patient at the [facility] follows with . Review of Systems: Review of Systems: Constitutional: Denies fever or chills Eyes: Denies change in visual acuity HENT: Denies nasal congestion or sore throat . Pt. complaints of head injury. Respiratory: Denies cough or shortness of breath Cardiovascular: Denies chest pain or edema GI: Denies abdominal pain, nausea, vomiting, bloody stools or diarrhea : Denies dysuria Musculoskeletal: Denies back pain or joint pain . Pt. complaints of Lt elbow injury. Integument: Denies rash Neurologic: Denies headache, focal weakness or sensory changes Endocrine: Denies polyuria or polydipsia Lymphatic: Denies swollen glands Psychiatric: Denies depression or anxiety Family History: Family History: Noncontributory to presentation Current Medications: Current Meds: See nursing for home meds. Allergies: Allergies: Allergies Coded Allergies Type Severity Reaction Last Updated Verified streptomycin Allergy Severe Hives 07/30/20 No morphine Allergy Intermediate Severe headache 07/30/20 No iodine Allergy Unknown 07/30/20 No Physical Exam: PE: Constitutional: Moderate acute distress, non-toxic appearance. [] HENT: Normocephalic, contusion posterior scalp, bilateral external ears normal, oropharynx moist, no oral exudates, nose normal. [] Eyes: PERRLA, EOMI, conjunctiva normal, no discharge. [] Neck: Limited range of motion, upper cervical tenderness, supple, no stridor. [] Cardiovascular:Heart rate regular rhythm, no murmur [, PMI to left Lungs & Thorax: Bilateral breath sounds equal apex auscultation [] few basilar crackles Abdomen: Bowel sounds normal, soft, no tenderness, no masses, no pulsatile masses. Mild distention. Multiple surgery scars Skin: Warm, dry, no erythema, no rash. Poor turgor Back: No tenderness, no CVA tenderness. Ptosis Extremities: No tenderness, no cyanosis, no clubbing, ROM intact, no edema. Arthritic changes. Except new findings left elbow contusion Neurologic: Alert and oriented X 3, does move all extremities on request, does have distal sensory but somewhat decreased in feet, no new focal deficits noted. [] Psychologic: Affect anxious, judgement does have some memory issues that are ob vious, mood normal. [] EKG: EKG: [] Radiology/Procedures: Radiology/Procedures: [[address] [address] IMAGING REPORT Signed PATIENT: CRISTIN NEWTON ACCOUNT: [id number] : 1930 LOCATION: ER AGE: 89 SEX: F EXAM STATUS: REG ER ORD. PHYSICIAN: GENIA ROCKWELL MD REASON: Fall, left elbow pain PROCEDURE: ELBOW LEFT 3V XR ELBOW COMPLETE_LEFT 3+VIEWS History: Reason: Fall, left elbow pain / Spl. Instructions: / History: Technique: 3 views left elbow. Comparison: None. Findings: Elbow joint effusion. No dislocation. No definite fracture. Impression: 1. Elbow joint effusion. No definite fracture. If persistent clinical concern for occult intra-articular fracture, CT can further evaluate. Electronically signed by: Daron Miller DO (09/05/2020 10:44 PM) [facility] DICTATED AND SIGNED BY: DARON MILLER DO DATE: 09/05/202237 CC: HELLEN DEAN MD; GENIA ROCKWELL MD ~[facility]0 0 ][address] [address] IMAGING REPORT Signed PATIENT: CRISTIN NEWTON ACCOUNT: [id number] : 1930 LOCATION: ER AGE: 89 SEX: F EXAM STATUS: REG ER ORD. PHYSICIAN: GENIA ROCKWELL MD REASON: Fall, hit back head, on angticoagulation, neck pain PROCEDURE: CT HEAD AND CERVICAL SPINE WO CT HEAD AND C-SPINE WO History: Reason: Fall, hit back head, on angticoagulation, neck pain / Spl. Instructions: / History: Comparison: April 02, 2020 Technique: Noncontrast CT imaging was performed of the head and cervical spine. Coronal and sagittal reconstructions were performed. Exposure: One or more of the following individualized dose reduction techniques were utilized for this examination: 1. Automated exposure control 2. Adjustment of the mA and/or kV according to patient size 3. Use of iterative reconstruction technique. Findings: Head CT: No intracranial hemorrhage. No mass effect. No hydrocephalus. Mild brain parenchymal volume loss. Extensive foci of decreased attenuation within the hemispheric white matter, most often due to chronic microvascular ischemia, unchanged compared to prior. Unchanged mildly dilated right greater than left lateral ventricles. Chronic bilateral basal ganglia and left thalamic lacunar infarcts. Chronic right cerebellar lacunar infarct. Imaged orbits are unremarkable. Imaged paranasal sinuses and mastoid air cells are clear. No acute calvarial fracture. TMJ arthropathy. Cervical spine CT: Normal vertebral body height and alignment. No fracture. Moderate multilevel degenerative disc changes most prominent C3-C4, C4-C5 and C5-C6. Advanced right greater than left facet arthropathy. Multilevel neuroforaminal narrowing. No high-grade canal stenosis. Rightward curvature of the thoracic spine. Heterogeneous thyroid nodule measures 2.9 x 2.2 cm. Impression: Head CT: 1. No acute intracranial abnormality. 2. Multifocal chronic lacunar infarcts. 3. Extensive sequelae of chronic microvascular ischemia, unchanged. Cervical spine CT: 1. No acute fracture or subluxation of the cervical spine. 2. Multilevel cervical spondylosis. 3. Right isthmus heterogeneous thyroid nodule. Recommend ultrasound to further evaluate. Electronically signed by: Daron Miller DO (09/05/2020 10:51 PM) [facility] DICTATED AND SIGNED BY: DARON MILLER DO DATE: 09/05/202243 CC: HELLEN DEAN MD; GENIA ROCKWELL MD ~MTH0 0 Heart Score: Risk Factors: Risk Factors: DM, Current or recent (<one month) smoker, HTN, HLP, family history of CAD, obesity. Risk Scores: Score 0 - 3: 2.5% MACE over next 6 weeks - Discharge Home Score 4 - 6: 20.3% MACE over next 6 weeks - Admit for Clinical Observation Score 7 - 10: 72.7% MACE over next 6 weeks - Early Invasive Strategies Course & Med Decision Making: Course & Med Decision Making Pertinent Labs and Imaging studies reviewed. (See chart for details) Patient currently requesting discharge. Ice packs as needed. Take meds as directed. Always use your walker. If Lt. elbow power press tender in 2 week - re- xray. Impression: 1. Trip and fall 2. Head injury 3. Left elbow contusion [] Dragon Disclaimer: Dragon Disclaimer: This electronic medical record was generated, in whole or in part, using a voice recognition dictation system. Departure Departure: Referrals: HELLEN DEAN MD (PCP) Gela Disclaimer This chart was dictated in whole or in part using Voice Recognition software in a busy, high-work load, and often noisy Emergency Department environment. It may contain unintended and wholly unrecognized errors or omissions. Dragon Disclaimer This chart was dictated in whole or in part using Voice Recognition software in a busy, high-work load, and often noisy Emergency Department environment. It may contain unintended and wholly unrecognized errors or omissions. GENIA ROCKWELL MD Sep 05, 2020 21:12
--- NOTE | 2020-09-05 22:46 | RAD ---
XR ELBOW COMPLETE_LEFT 3+VIEWS History: Reason: Fall, left elbow pain / Spl. Instructions: / History: Technique: 3 views left elbow. Comparison: None. Findings: Elbow joint effusion. No dislocation. No definite fracture. Impression: 1. Elbow joint effusion. No definite fracture. If persistent clinical concern for occult intra-artic ular fracture, CT can further evaluate. Electronically signed by: Daron Miller DO (09/05/2020 10:44 PM) HELLEN
--- NOTE | 2020-09-05 22:54 | RAD ---
CT HEAD AND C-SPINE WO History: Reason: Fall, hit back head, on angticoagulation, neck pain / Spl. Instructions: / History: Comparison: April 02, 2020 Technique: Noncontrast CT imaging was performed of the head and cervical spine. Coronal and sagittal reconstructions were performed. Exposure: One or more of the following individualized dose reduction techniques were utilized for thi s examination: 1. Automated exposure control 2. Adjustment of the mA and/or kV according to patient size 3. Use of iterative reconstruction technique. Findings: Head CT: No intracranial hemorrhage. No mass effect. No hydrocephalus. Mild brain parenchymal volume loss. Extensive foci of decreased attenuation within the hemispheric wh ite matter, most often due to chronic microvascular ischemia, unchanged compared to prior. Unchanged mildly dilated right greater than left lateral ventricles. Chronic bilateral basal ganglia and left thalamic lacunar infarcts. Chronic right cerebellar lacunar infarct. Imaged orbits are unremarkable. Imaged paranasal sinuses and mastoid air cells are clear. No acute ca lvarial fracture. TMJ arthropathy. Cervical spine CT: Normal vertebral body height and alignment. No fracture. Moderate multilevel degenerative disc changes most prominent C3-C4, C4-C5 and C5-C6. Advanced right g reater than left facet arthropathy. Multilevel neuroforaminal narrowing. No high-grade canal stenosis . Rightward curvature of the thoracic spine. Heterogeneous thyroid nodule measures 2.9 x 2.2 cm. Impression: Head CT: 1. No acute intracranial abnormality. 2. Multifocal chronic lacunar infarcts. 3. Extensive sequelae of chronic microvascular ischemia, unchanged. Cervical spine CT: 1. No acute fracture or subluxation of the cervical spine. 2. Multilevel cervical spondylosis. 3. Right isthmus heterogeneous thyroid nodule. Recommend ultrasound to further evaluate. Electronically signed by: Daron Miller DO (09/05/2020 10:51 PM) [facility]
[2020-09-05 23:02] VITALS: BP 164/76
== END 2020-09-05 23:24 | disposition home or self-care (01) ==
LOC: ER 21:02
DX: S50.02XA Contusion of left elbow, initial encounter (principal); S09.8XXA Other specified injuries of head, initial encounter; F41.9 Anxiety disorder, unspecified; M19.90 Unspecified osteoarthritis, unspecified site; I10 Essential (primary) hypertension; Z90.89 Acquired absence of other organs; Z90.710 Acquired absence of both cervix and uterus; Z98.890 Other specified postprocedural states; Z86.73 Personal history of transient ischemic attack (TIA), and cerebral infarction without residual deficits; W01.0XXA Fall on same level from slipping, tripping and stumbling without subsequent striking against object, initial encounter; Y93.89 Activity, other specified; Y92.89 Other specified places as the place of occurrence of the external cause; Y99.8 Other external cause status
CPT/HCPCS: 70450; 72125; 73080; 99285

== ENCOUNTER → 2020-09-17 | Outpatient (CLI) | payer MEDICARE ==
[2020-09-05 23:02] VITALS: BP 164/76
--- NOTE | 2020-09-17 10:53 | RAD ---
MR#: [id number] Date of Study: 09/17/2020 Ordering Physician: COURTNEY HUTTON, Referring Physician: COURTNEY HUTTON, Tech: Liliana Dove RVT,TARAH APPROVED REPORT Patient Location: OUT-PATIENT Laterality:Bilateral Indications Bruit Grayscale images of the bilateral carotid vessels demonstrates moderate diffuse plaque. The right ca rotid artery is tortuous and there was difficulty evaluating the degree of stenosis due to tortuosity on this ultrasound study. Nonetheless, based on spectral waveforms and velocities there is a modera te 50 to 69% stenosis in the proximal right internal carotid artery. No significant left-sided disea se is noted. Normal antegrade vertebral velocities bilaterally. Mildly elevated ICA to CCA ratio on the right side. Risk Factors Hypertension: TIA/CVA History Smoking Doppler Spectral Velocity Analysis Right Left pCCA 87/19 cm/spCCA 85/17 cm/s mCCA 95/21 cm/smCCA 79/15 cm/s dCCA 81/23 cm/sdCCA 86/17 cm/s Bulb 85/19 cm/sBulb 82/11 cm/s ECA 119/22 cm/sECA 91/8 cm/s pICA 191/45 cm/spICA 117/29 cm/s Shahida 110/29 cm/smICA 103/31 cm/s dICA 110/33 cm/sdICA 85/24 cm/s Vert. 55/14 cm/sVert. 41/9 cm/s ICA/CCA 2.01ICA/CCA 1.38 Critical Notification Critical Value: No <Conclusion> 1. 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 Consider CT angiograp hy for further evaluation or close follow-up in 6 months. Signed by : Rafa Agustin, Electronically Approved : 09/17/2020 10:52:41
== END ==
LOC: US 08:45
PROVIDERS: ATTEND Internal Medicine Cardiovascular Disease
DX: R09.89 Other specified symptoms and signs involving the circulatory and respiratory systems (principal)
CPT/HCPCS: 93880